=== PATIENT | male | born 1980 | race Caucasian/White ===

== ENCOUNTER 2020-07-06 16:45 | Emergency (ER) | payer OTHER ==
[~2020-07-06] VITALS: Ht 182.9 cm; Wt 86.2 kg
[~2020-07-06 16:45] MED LIST: CATAPRES PO; CLEOCIN HCL300 MG PO; IBUPROFEN 600600 M1 PO; NAPROSYN500 MG PO; NOHOMEMEDICATIONS; NORCO 5-325 TA1 EACH PO
[2020-07-06] MEDS ORDERED: KEFLEX500 M1 PO (17:15)
[2020-07-06] MEDS ORDERED: IBUPROFEN 800800 M1 PO (17:16)
[2020-07-06 18:15] VITALS: BP 190/80
== END 2020-07-06 18:15 | disposition home or self-care (01) ==
LOC: M.ERS 16:45
DX: S61.012A Laceration without foreign body of left thumb without damage to nail, initial encounter (principal); I10 Essential (primary) hypertension; W23.0XXA Caught, crushed, jammed, or pinched between moving objects, initial encounter; Y93.89 Activity, other specified; Y92.89 Other specified places as the place of occurrence of the external cause; Y99.8 Other external cause status